=== PATIENT | female | born 1950 | race Native Hawaiian/Other Pacific Islander ===

== ENCOUNTER 2019-07-08 09:14 | Outpatient (CLI) | payer OTHER | END 2019-07-08 21:18 | disposition home or self-care (01) | LOC: NM 09:14 | DX: R74.8 Abnormal levels of other serum enzymes (principal) | CPT/HCPCS: A9561 ==

== ENCOUNTER 2019-08-17 13:12 | Outpatient (CLI) | payer OTHER | END 2019-08-17 20:16 | disposition home or self-care (01) | LOC: RAD 13:12 | DX: M81.0 Age-related osteoporosis without current pathological fracture (principal) ==

== ENCOUNTER 2019-10-20 11:25 | Outpatient (CLI) | payer OTHER | END 2019-10-20 19:34 | disposition home or self-care (01) | LOC: MRI 11:25 | DX: M48.54XA Collapsed vertebra, not elsewhere classified, thoracic region, initial encounter for fracture (principal) ==

== ENCOUNTER 2020-09-16 09:28 | Outpatient (CLI) | payer OTHER | END 2020-09-16 19:37 | disposition home or self-care (01) | LOC: INF 09:28 | PROVIDERS: ATTEND Internal Medicine | DX: Z23 Encounter for immunization (principal) ==

== ENCOUNTER 2020-10-14 07:34 | Outpatient (CLI) | payer OTHER | END 2020-10-14 19:19 | disposition home or self-care (01) | LOC: INF 07:34 | PROVIDERS: ATTEND Internal Medicine | DX: Z23 Encounter for immunization (principal) | CPT/HCPCS: 96372 ==

== ENCOUNTER 2020-11-30 09:44 | Emergency (ER) | payer OTHER ==
[~2020-11-30] VITALS: Ht 167.6 cm; Wt 74.4 kg
[2020-11-30 09:48] VITALS: TEMP 98.4
[2020-11-30 10:44] VITALS: BP 121/74
== END 2020-11-30 10:44 | disposition home or self-care (01) ==
LOC: ED 09:44
PROC: 0HQGXZZ Repair Left Hand Skin, External Approach (ICD-10-PCS; principal; 2020-11-30)
DX: S61.012A Laceration without foreign body of left thumb without damage to nail, initial encounter (principal); W26.0XXA Contact with knife, initial encounter; Y92.098 Other place in other non-institutional residence as the place of occurrence of the external cause
CPT/HCPCS: 90471; 90715; 99283

== ENCOUNTER 2020-12-07 11:36 | Emergency (ER) | payer OTHER ==
[~2020-12-07] VITALS: Ht 167.6 cm; Wt 74.4 kg
[2020-12-07 11:40] VITALS: BP 132/80; TEMP 97.2
== END 2020-12-07 12:45 | disposition home or self-care (01) ==
LOC: ED 11:36
DX: Z48.02 Encounter for removal of sutures (principal)